=== PATIENT | male | born 1955 | race Caucasian/White ===

== ENCOUNTER 2017-07-21 07:56 | Emergency (ER) | payer MEDICAID ==
[~2017-07-21] VITALS: Ht 162.6 cm; Wt 42.5 kg
[~2017-07-21 07:56] MED LIST: MOTR200T PO; Z.0.NO CURRENT MEDS
[2017-07-21 07:58] VITALS: PULSE 129; RESP 18; TEMP 97.8; O2SAT 98
[2017-07-21] MEDS ORDERED: ASPIRIN 325 MG TAB PO ONE (08:15)
[2017-07-21] MEDS ORDERED: SODIUM CHLORIDE 0.9% FLUSH 10 ML FLUSH IVF PRN (08:15)
--- NOTE | 2017-07-21 08:39 | PD ---
HPI Chief Complaint: Chest Pain Time Seen by Provider: 08:04 Travel History International Travel<30 days: No Contact w/Intl Traveler<30days: No Traveled to known affect area: No History of Present Illness HPI 61 y/o male presents with central chest pain this morning. His roommate's sister brought him here as he has insurance issues and she had nowhere else to take him. Patient has a very poor historian and it is hard to get an exact timeline but he has been having this intermittently over the past couple months per his roommate sister. Patient denies any other concurrent complaints at this time. He denies taking an aspirin yet this morning. He denies specific modifying factors. PFSH Past Medical History Cardiovascular Problems: Yes (A-FIB) Diminished Hearing: No Past Surgical History Other Surgery: Yes (cataract) Social History Alcohol Use: Yes (2 BEERS A DAY) Tobacco Use: Yes (1 PK DAY) Substance Use: No Allergies-Medications (Allergen,Severity, Reaction): Coded Allergies: No Known Allergies (Verified , 12/31/15) Reported Meds & Prescriptions Reported Meds & Active Scripts Active Reported Ibuprofen 200 Mg Tab 200 Mg PO DAILY PRN No Current Meds (Miscellaneous Medication) Misc Review of Systems Except as stated in HPI: all other systems reviewed are Neg Physical Exam Narrative GENERAL: 61-year-old male in no apparent distress wearing sunglasses SKIN: Focused skin assessment warm/dry. HEAD: Atraumatic. Normocephalic. ENT: No nasal bleeding or discharge. Mucous membranes pink and moist. NECK: Trachea midline. CARDIOVASCULAR: Regular rate and rhythm. RESPIRATORY: No accessory muscle use. Clear to auscultation. Breath sounds equal bilaterally. GASTROINTESTINAL: Abdomen soft, non-tender, nondistended. MUSCULOSKELETAL: No obvious deformities. No clubbing. No cyanosis. No edema. NEUROLOGICAL: Awake and alert. Motor grossly within normal limits. Normal speech. Data Data Last Documented VS Vital Signs Date Time Temp Pulse Resp B/P (MAP) Pulse Ox O2 Delivery O2 Flow Rate FiO2 07/21/17 10:14 99 Room Air 07/21/17 07:58 97.8 129 18 Orders Orders Electrocardiogram (07/21/17 08:04) Ckmb (Isoenzyme) Profile (07/21/17 08:04) Complete Blood Count With Diff (07/21/17 08:04) Comprehensive Metabolic Panel (07/21/17 08:04) Magnesium (Mg) (07/21/17 08:04) Prothrombin Time / Inr (Pt) (07/21/17 08:04) Act Partial Throm Time (Ptt) (07/21/17 08:04) Troponin I (07/21/17 08:04) Chest, Single Ap (07/21/17 08:04) Ecg Monitoring (07/21/17 08:04) Bilateral Bp Monitoring (07/21/17 08:04) Iv Access Insert/Monitor (07/21/17 08:04) Oximetry (07/21/17 08:04) Sodium Chloride 0.9% Flush (Ns Flush) (07/21/17 08:15) Aspirin (Aspirin) (07/21/17 08:15) Labs Laboratory Tests Test 07/21/17 08:30 White Blood Count 7.2 TH/MM3 Red Blood Count 4.50 MIL/MM3 Hemoglobin 14.1 GM/DL Hematocrit 40.6 % Mean Corpuscular Volume 90.1 FL Mean Corpuscular Hemoglobin 31.4 PG Mean Corpuscular Hemoglobin Concent 34.8 % Red Cell Distribution Width 14.4 % Platelet Count 196 TH/MM3 Mean Platelet Volume 8.1 FL Neutrophils (%) (Auto) 51.5 % Lymphocytes (%) (Auto) 31.0 % Monocytes (%) (Auto) 12.9 % Eosinophils (%) (Auto) 4.1 % Basophils (%) (Auto) 0.5 % Neutrophils # (Auto) 3.7 TH/MM3 Lymphocytes # (Auto) 2.2 TH/MM3 Monocytes # (Auto) 0.9 TH/MM3 Eosinophils # (Auto) 0.3 TH/MM3 Basophils # (Auto) 0.0 TH/MM3 CBC Comment DIFF FINAL Differential Comment Prothrombin Time 10.8 SEC Prothromb Time International Ratio 1.1 RATIO Activated Partial Thromboplast Time 24.7 SEC Blood Urea Nitrogen 15 MG/DL Creatinine 0.72 MG/DL Random Glucose 109 MG/DL Total Protein 7.4 GM/DL Albumin 3.3 GM/DL Calcium Level 9.7 MG/DL Magnesium Level 1.8 MG/DL Alkaline Phosphatase 120 U/L Aspartate Amino Transf (AST/SGOT) 64 U/L Alanine Aminotransferase (ALT/SGPT) 96 U/L Total Bilirubin 0.8 MG/DL Sodium Level 139 MEQ/L Potassium Level 5.0 MEQ/L Chloride Level 106 MEQ/L Carbon Dioxide Level 24.1 MEQ/L Anion Gap 9 MEQ/L Estimat Glomerular Filtration Rate 111 ML/MIN Total Creatine Kinase 67 U/L Troponin I LESS THAN 0.02 NG/ML MDM Medical Decision Making Medical Screen Exam Complete: Yes Emergency Medical Condition: Yes Medical Record Reviewed: Yes (past history confirmed) Interpretation(s) CBC & BMP Diagram 07/21/17 08:30 Total Protein 7.4, Albumin 3.3 L, Calcium Level 9.7, Magnesium Level 1.8, Alkaline Phosphatase 120 H, Aspartate Amino Transf (AST/SGOT) 64 H, Alanine Aminotransferase (ALT/SGPT) 96 H, Total Bilirubin 0.8 Last 24 hours Impressions Chest X-Ray 07/21/17 0804 Signed Impressions: Service Date/Time: Friday, July 21, 2017 08:17 - CONCLUSION: No acute disease. Farhan Rossi MD Differential Diagnosis PE, anxiety, COPD, pneumothorax, musculoskeletal, cardiac Narrative Course Will check blood work, chest x-ray, EKG and dose with aspirin and reevaluate. Patient denies pain currently On reassessment at approximately 10 AM. Patient was advised initial testing is negative and advised to get a ct chest and stay in the chest pain center. Nurse at bedside, patient wants to leave ama AMA: The risks of leaving against medical advice without further evaluation treatment were discussed with the patient. These risks include cardiac dysfunction, cardiac dysrhythmia, possible heart attack, possible stroke or . The patient indicated understanding of these risks and appeared to have the capacity to make this decision. Diagnosis Primary Impression: Chest pain Qualified Codes: R07.9 - Chest pain, unspecified Patient Instructions: General Instructions Disposition: 07 AGAINST MEDICAL ADVICE Condition: Stable Maxine Grayson MD Jul 21, 2017 08:39
--- NOTE | 2017-07-21 08:44 | RADRPT ---
EXAM DATE/TIME: 07/21/2017 08:17 [facility] COMPARISON: No previous studies available for comparison. INDICATIONS : Chest pain. MEDICAL HISTORY : None. SURGICAL HISTORY : None. ENCOUNTER: Initial ACUITY: 1 day PAIN SCORE: 5/10 LOCATION: Bilateral chest FINDINGS: A single view of the chest demonstrates the lungs to be symmetrically aerated without evidence of mas s, infiltrate or effusion. The cardiomediastinal contours are unremarkable. Osseous structures are intact. CONCLUSION: No acute disease. Farhan Rossi MD on July 21, 2017 at 8:39 Board Certified Radiologist. This report was verified electronically.
[2017-07-21 08:47] LABS: AUTOMATED NEUTROPHIL # 3.7 TH/MM3 (1.8-7.7); BASOPHIL % 0.5 % (0.0-2.0); EOSINOPHIL # 0.3 TH/MM3 (0-0.4); EOSINOPHIL % 4.1 % (0.0-4.0); HEMATOCRIT 40.6 % (39.0-51.0); HEMOGLOBIN 14.1 GM/DL (13.0-17.0); LYMPHOCYTE # 2.2 TH/MM3 (1.0-4.8); MEAN CELL VOLUME 90.1 FL (80.0-100.0); MEAN CORPUSCULAR HEMOGLOBIN 31.4 PG (27.0-34.0); MEAN CORPUSCULAR HGB CONC 34.8 % (32.0-36.0); MEAN PLATELET VOLUME 8.1 FL (7.0-11.0); MONO % 12.9 % (0.0-8.0); MONOCYTE # 0.9 TH/MM3 (0-0.9); NEUT % 51.5 % (16.0-70.0); PLATELET COUNT 196 TH/MM3 (150-450); RED CELL DISTRIBUTION WIDTH 14.4 % (11.6-17.2); WHITE BLOOD COUNT 7.2 TH/MM3 (4.0-11.0)
[2017-07-21 08:58] LABS: INTERNATIONAL NORMALIZED RATIO 1.1 RATIO; PROTHROMBIN TIME - PATIENT 10.8 SEC (9.8-11.6)
[2017-07-21 09:21] LABS: ALT (GPT) 96 U/L (12-78)
[2017-07-21 09:29] LABS: ALBUMIN 3.3 GM/DL (3.4-5.0); ALKALINE PHOSPHATASE 120 U/L (45-117); AST (GOT) 64 U/L (15-37); BICARBONATE 24.1 MEQ/L (21.0-32.0); BLOOD UREA NITROGEN 15 MG/DL (7-18); CALCIUM 9.7 MG/DL (8.5-10.1); CHLORIDE 106 MEQ/L (98-107); CREATININE 0.72 MG/DL (0.60-1.30); GLOMERULAR FILTRATION RATE 111 ML/MIN (>89); GLUCOSE,RANDOM 109 MG/DL (74-106); MAGNESIUM 1.8 MG/DL (1.5-2.5); SODIUM (NA) 139 MEQ/L (136-145); TOTAL BILIRUBIN ADULT 0.8 MG/DL (0.2-1.0); TOTAL PROTEIN 7.4 GM/DL (6.4-8.2); TROPONIN I LESS THAN 0.02 NG/ML (0.02-0.05)
[2017-07-21 10:14] VITALS: O2SAT 99
[2017-07-21 10:32] VITALS: PULSE 96; RESP 18; O2SAT 100
[2017-07-21 10:33] VITALS: BP 132/96
--- NOTE | 2017-07-21 18:29 | EKG ---
Date Performed: 07/21/2017 Time Performed: 08:11:09 PTAGE: 61 years EKG: Sinus rhythm WITH SHORT WI INTERVAL POSSIBLE LEFT ATRIAL ENLARGEMENT POSSIBLE LEFT VENTRICULAR HYPERTROPHY ABNORM AL ECG NO PREVIOUS TRACING DOCTOR: Jostin Zheng Interpretating Date/Time 07/21/2017 18:27:41
== END 2017-07-21 10:38 | disposition left against medical advice (07) ==
LOC: NEPC 07:56
DX: R07.9 Chest pain, unspecified (principal); R94.31 Abnormal electrocardiogram [ECG] [EKG]; I48.91 Unspecified atrial fibrillation; F17.200 Nicotine dependence, unspecified, uncomplicated; Z53.20 Procedure and treatment not carried out because of patient's decision for unspecified reasons
CPT/HCPCS: 71045; 80053; 82550; 83735; 84484; 85025; 85610; 85730; 93005; 99285